=== PATIENT | female | born 1970 | race Two or more races ===

== ENCOUNTER 2019-05-17 11:43 | Emergency (ER) | payer OTHER ==
[~2019-05-17] VITALS: Ht 170.2 cm; Wt 76.2 kg
[2019-05-17] MEDS ORDERED: METROGEL-VAGINA70 GM VAG (12:26)
[2019-05-17] MEDS ORDERED: DOLOGEN CAPLET1 EACH PO (12:26)
[2019-05-17] MEDS ORDERED: NORFLEX100MG PO (12:26)
== END 2019-05-17 12:40 | disposition home or self-care (01) ==
LOC: ER 11:43
DX: M54.5 Low back pain (principal)

== ENCOUNTER 2022-12-14 17:21 | Emergency (ER) | payer OTHER ==
[~2022-12-14] VITALS: Ht 170.2 cm; Wt 73.5 kg
[~2022-12-14 17:21] MED LIST: DOLOGEN CAPLET1 EACH PO; METROGEL-VAGINA70 GM VAG; NORFLEX100MG PO
[2022-12-14 18:10] LABS: HEMATOCRIT 33.5 % (36.0-45.00); HEMOGLOBIN 10.6 g/dL (12.0-15.00); MEAN CORPUSCULAR HEMOGLOBIN 21.3 pg (27.00-32.0); MEAN CORPUSCULAR HGB CONC 31.8 g/dl (32.0-36.0); PLATELET COUNT 359 K/uL (150-450); RED CELL DISTRIBUTION WIDTH 18.4 % (11.5-14.5)
[2022-12-14 18:13] LABS: MEAN CELL VOLUME 66.9 fL (80.00-100.00)
== END 2022-12-14 19:14 | disposition home or self-care (01) ==
LOC: ER 17:21
PROVIDERS: General Practice
DX: J10.1 Influenza due to other identified influenza virus with other respiratory manifestations (principal); Z20.822 Contact with and (suspected) exposure to COVID-19; Z88.6 Allergy status to analgesic agent

== ENCOUNTER 2023-03-02 06:55 | Emergency (ER) | payer OTHER ==
[~2023-03-02] VITALS: Ht 172.7 cm; Wt 73.5 kg
[2023-03-02 09:59] LABS: HEMATOCRIT 32.6 % (36.0-45.00); HEMOGLOBIN 10.2 g/dL (12.0-15.00); MEAN CORPUSCULAR HEMOGLOBIN 20.8 pg (27.00-32.0); MEAN CORPUSCULAR HGB CONC 31.4 g/dl (32.0-36.0); PLATELET COUNT 271 K/uL (150-450); RED BLOOD COUNT 4.92 M/uL (4.00-6.00); RED CELL DISTRIBUTION WIDTH 18.5 % (11.5-14.5)
[2023-03-02 10:25] LABS: MEAN CELL VOLUME 66.3 fL (80.00-100.00)
[2023-03-02 10:55] LABS: CALCIUM 8.6 mg/dL (8.5-10.1); CREATININE SERUM 0.84 mg/dL (0.55-1.02); GFR 70.65; POTASSIUM 3.23 mEq/L (3.5-5.1)
[2023-03-02 10:59] LABS: PH,URINE 5.5 (5.0-8.0); URINE APPEARANCE Cloudy; URINE BILIRRUBIN Negative (NEGATIVE); URINE BLOOD Large; URINE COLOR Dark Yellow; URINE GLUCOSE Negative (NEGATIVE); URINE LEUKOCYTE Negative; URINE NITRATE Negative; URINE PROTEIN 30 (NEGATIVE)
[2023-03-02 11:06] LABS: URINE BACTERIA 1015.5 uL (0.0-1933); URINE EPITHELIAL CELLS 46.5 uL (0.0-38.8); URINE RBC 48.2 uL (0.0-20.8); URINE WBC 23.4 uL (0.0-23.2)
[2023-03-02 11:53] LABS: URINE CRYSTALS MODERATE /HPF
== END 2023-03-02 15:29 | disposition home or self-care (01) ==
LOC: ER 06:55
PROVIDERS: General Practice
DX: M54.9 Dorsalgia, unspecified (principal); R10.9 Unspecified abdominal pain; Z20.822 Contact with and (suspected) exposure to COVID-19; Z88.6 Allergy status to analgesic agent

== ENCOUNTER 2023-03-06 23:35 | Emergency (ER) | payer OTHER ==
[~2023-03-06] VITALS: Ht 167.6 cm; Wt 63.5 kg
[2023-03-07 02:57] LABS: HEMATOCRIT 34.1 % (36.0-45.00); HEMOGLOBIN 10.6 g/dL (12.0-15.00); MEAN CORPUSCULAR HEMOGLOBIN 20.8 pg (27.00-32.0); MEAN CORPUSCULAR HGB CONC 31.1 g/dl (32.0-36.0); PLATELET COUNT 155 K/uL (150-450); RED CELL DISTRIBUTION WIDTH 18.5 % (11.5-14.5)
[2023-03-07 03:00] LABS: MEAN CELL VOLUME 66.9 fL (80.00-100.00)
[2023-03-07 03:10] LABS: ALBUMIN 2.5 gm/dL (3.4-5.0); BILIRUBIN TOTAL 0.72 mg/dL (0.3-1.2); CALCIUM 8.9 mg/dL (8.5-10.1); CREATININE SERUM 1.69 mg/dL (0.55-1.02); GFR 31.53; GLOBULINA 6.5 G/DL (2.4-3.5); POTASSIUM 3.71 mEq/L (3.5-5.1)
[2023-03-07 08:59] LABS: URINE APPEARANCE Cloudy; URINE BILIRRUBIN Negative (NEGATIVE); URINE BLOOD Large; URINE COLOR Dark Yellow; URINE GLUCOSE Negative (NEGATIVE); URINE LEUKOCYTE Small; URINE NITRATE Negative
[2023-03-07 09:02] LABS: URINE BACTERIA 1737.5 uL (0.0-1933); URINE RBC 8.7 uL (0.0-20.8); URINE WBC 40.5 uL (0.0-23.2)
[2023-03-07 09:33] LABS: URINE PROTEIN 300 (NEGATIVE)
== END 2023-03-07 17:02 | disposition home or self-care (01) ==
LOC: ER 23:36
DX: K52.89 Other specified noninfective gastroenteritis and colitis (principal); Z88.6 Allergy status to analgesic agent; Z20.822 Contact with and (suspected) exposure to COVID-19